=== PATIENT | male | born 1945 | race Caucasian/White ===

== ENCOUNTER 2017-03-27 02:28 | Inpatient (IN) | payer BC, OTHER ==
[~2017-03-27] VITALS: Ht 172.7 cm; Wt 111.9 kg
[2017-03-27] MEDS ORDERED: HYDROCODONE/HOMATROPINE SYRUP 5MG/1.5MG 5ML UDP PO STA (02:58)
[2017-03-27] MEDS ORDERED: SODIUM CHLORIDE 0.9% 1000ML 1,000 ML IV STA (02:58)
[2017-03-27] MEDS ORDERED: ASPI1TAB48 PO (03:10)
[2017-03-27 03:11] LABS: BASO % 0.3 %; BASO ABS # 0.03 K/uL (0-0.2); COMPLETE YES; EOS % 3.7 %; HEMATOCRIT 44.8 % (42-52); IG% 0.1 %; LYMPH % 22.1 %; LYMPH ABS # 1.91 K/uL (1.2-3.4); MEAN CELL VOLUME 86.5 fL (80-100); MEAN CORPUSCULAR HEMOGLOBIN 30.7 pg (25-34); MEAN CORPUSCULAR HGB CONC 35.5 g/dl (32-36); MEAN PLATELET VOLUME 10.1 fL (7.4-10.4); NEUT % 60.8 %; PLATELET COUNT 191 K/uL (130-400); RED BLOOD COUNT 5.18 M/uL (4.7-6.1); WHITE BLOOD COUNT 8.64 K/uL (4.8-10.8)
[2017-03-27] MEDS ORDERED: PRLSR20 PO (03:11)
[2017-03-27] MEDS ORDERED: HYDR25TA4 PO (03:12)
[2017-03-27] MEDS ORDERED: EZET10TA63 PO (03:13)
[2017-03-27] MEDS ORDERED: SOTA80TA PO (03:14)
[2017-03-27] MEDS ORDERED: LEVO25TA5 PO (03:14)
[2017-03-27] MEDS ORDERED: FEXO1TAB49 PO (03:15)
[2017-03-27] MEDS ORDERED: MULT-1093 PO (03:16)
[2017-03-27] MEDS ORDERED: CHOL1000 PO (03:17)
[2017-03-27] MEDS ORDERED: LUTE6TAB PO (03:18)
[2017-03-27] MEDS ORDERED: CIPR0.3S OP (03:22)
[2017-03-27 03:42] LABS: ALT/SGPT 30 U/L (12-78); AST/SGOT 18 U/L (15-37); BLOOD UREA NITROGEN 16 mg/dl (7-18); BUN/CREATININE RATIO 14.9 (10-20); CALCIUM 8.5 mg/dl (8.5-10.1); CARBON DIOXIDE 26 mmol/L (21-32); CHLORIDE 107 mmol/L (98-107); GLUCOSE 160 mg/dl (70-99); POTASSIUM 3.7 mmol/L (3.5-5.1); SODIUM 141 mmol/L (136-145)
[2017-03-27 03:48] LABS: ALKALINE PHOSPHATASE 117 U/L (45-117); CKMB/CK RATIO 2.1 (0-3.0)
--- NOTE | 2017-03-27 04:13 | EMERGENCY ROOM VISIT NOTE ---
History Report prepared by Darci: Pratima Dwyer Under the Supervision of: Dr. Johnny Jules M.D. First contact with patient: 02:47 Chief Complaint: CHEST PAIN Stated Complaint: CHEST PAIN,NUMBNESS,B/P 175/100 AT HOME Nursing Triage Summary: See triage noted History of Present Illness The patient is a 71 year old male who presents to the Emergency Room with complaints of an episode of chest pain starting two hours ago. The patient reports that he fell asleep watching the news on the couch when he woke up with the chest pain. He states that he felt pain in his arm and hand. He notes that his hand felt cold and numb. He states at this point he started coughing. The patient notes a history of atrial fibrillation and that when he has an episode, he coughs. He states that he assumed that it was his atrial fibrillation, but then when it didn't pass, he decided to come to the ED. His notes that she took his blood pressure with their home cough and it was 175/100. The patient notes that he can feel his palpitations when he has his atrial fibrillation, but didn't tonight. He notes that he had a mild pain shooting from his chest pain. The patient notes that he has had a cardiac catheterization done that found two blockages of 50%. He denies any stent placement. The patient also notes that he has been under stress lately since they are approaching the one year anniversary of his son's and his birthday. The patient currently rates his pain as a 2/10 in severity. Source of History: patient Onset: two hours ago Position: chest Symptom Intensity: 2/10 Quality: pressure Timing: other (episode) Associated Symptoms: + cough, + numbness Note: The patient complains of the pain radiating to his arm and hand. Review of Systems See HPI for pertinent positives & negatives. A total of 10 systems reviewed and were otherwise negative. Past Medical & Surgical Medical Problems: (1) Atrial fibrillation (2) Precordial chest pain Surgical Problems: (1) History of cholecystectomy (2) Hx of umbilical hernia repair Family History No pertinent family history Social History Smoking Status: Never Smoker Drug Use: none Marital Status: Housing Status: lives with significant other Current/Historical Medications Scheduled Aspirin (Aspirin Low Dose), 81 MG PO DAILY Cholecalciferol (Vitamin D3), 5,000 TAB PO DAILY Ciprofloxacin Hcl (Ophth) (Ciloxan Oph), 1 DROPS OP DIRECTED Ezetimibe (Zetia), 10 MG PO DAILY Fexofenadine Hcl (Anne Allergy), 1 TAB PO DAILY Hydrochlorothiazide (Hctz), 25 MG PO DAILY Levothyroxine Sodium (Levothyroxine Sodium), 25 MCG PO DAILY Lutein-Zeaxanthin (Lutein W/Zeaxanthin), 1 TAB PO DAILY Multiple Vitamins W/ Minerals (Centrum Silver 50+Men), 1 TAB PO DAILY Omeprazole (Prilosec), 40 MG PO DAILY Sotalol Hcl (Sotalol Hcl), 40 MG PO BID Scheduled PRN Hydrocodone W/ Homatropine (Hycodan 5/1.5MG 5 Ml), 5 ML PO HS PRN for Cough Allergies Coded Allergies: Cefuroxime (Unverified Allergy, Unknown, nausea, 03/27/17) Jody (Unverified Allergy, Unknown, unknown, 03/27/17) Uncoded Allergies: FRANCES PEPPERS (Allergy, Unknown, unknown, 03/27/17) Physical Exam Vital Signs Date Time Temp Pulse Resp B/P (MAP) Pulse Ox O2 Delivery O2 Flow Rate FiO2 03/27/17 06:47 84 03/27/17 06:01 76 20 144/82 96 Room Air 03/27/17 05:13 89 16 146/100 97 Room Air 03/27/17 04:45 84 20 120/78 95 Room Air 03/27/17 04:00 92 16 136/84 96 Room Air 03/27/17 03:02 96 Room Air 03/27/17 03:02 96 Room Air 03/27/17 02:52 105 03/27/17 02:40 96 Room Air 03/27/17 02:34 37.4 118 22 134/112 97 Room Air Physical Exam GENERAL: Patient is a healthy-appearing well-nourished HEAD: Normocephalic atraumatic EYES: Ocular movements intact pupils equal and react to light OROPHARYNX mucous membranes are moist no exudates present no erythema or edema present NECK: Supple no nuchal rigidity CHEST: Good equal expansion. Tender to left side of chest wall. LUNGS: Clear and equal to auscultation CARDIAC: Normal S1 and S2 ABDOMEN: Soft, tender to epigastric region, no guarding BACK: No CVA tenderness EXTREMITIES: No pain upon palpation normal muscle strength in all groups no clubbing cyanosis or edema NEURO: Patient is following commands and answering questions appropriately. Alert and oriented x3 Cranial Nerves 2-12 grossly intact Medical Decision & Procedures ER Provider Diagnostic Interpretation: Radiology results as stated below per my review: CHEST X-RAY 1 VIEW: Findings: I interpreted the x-ray and there is no evidence of pneumonia, congestion, or pneumothorax. Laboratory Results 03/27/17 02:35 Red Blood Count 5.18, Mean Corpuscular Volume 86.5, Mean Corpuscular Hemoglobin 30.7, Mean Corpuscular Hemoglobin Concent 35.5, Mean Platelet Volume 10.1, Neutrophils (%) (Auto) 60.8, Lymphocytes (%) (Auto) 22.1, Monocytes (%) (Auto) 13.0, Eosinophils (%) (Auto) 3.7, Basophils (%) (Auto) 0.3, Neutrophils # (Auto ) 5.25, Lymphocytes # (Auto) 1.91, Monocytes # (Auto) 1.12, Eosinophils # (Auto ) 0.32, Basophils # (Auto) 0.03 03/27/17 02:35 Test 03/27/17 02:35 03/27/17 04:06 White Blood Count 8.64 K/uL (4.8-10.8) Red Blood Count 5.18 M/uL (4.7-6.1) Hemoglobin 15.9 g/dL (14.0-18.0) Hematocrit 44.8 % (42-52) Mean Corpuscular Volume 86.5 fL (80-100) Mean Corpuscular Hemoglobin 30.7 pg (25-34) Mean Corpuscular Hemoglobin Concent 35.5 g/dl (32-36) Platelet Count 191 K/uL (130-400) Mean Platelet Volume 10.1 fL (7.4-10.4) Neutrophils (%) (Auto) 60.8 % Lymphocytes (%) (Auto) 22.1 % Monocytes (%) (Auto) 13.0 % Eosinophils (%) (Auto) 3.7 % Basophils (%) (Auto) 0.3 % Neutrophils # (Auto) 5.25 K/uL (1.4-6.5) Lymphocytes # (Auto) 1.91 K/uL (1.2-3.4) Monocytes # (Auto) 1.12 K/uL (0.11-0.59) Eosinophils # (Auto) 0.32 K/uL (0-0.5) Basophils # (Auto) 0.03 K/uL (0-0.2) RDW Standard Deviation 41.9 fL (36.4-46.3) RDW Coefficient of Variation 13.1 % (11.5-14.5) Immature Granulocyte % (Auto) 0.1 % Immature Granulocyte # (Auto) 0.01 K/uL (0.00-0.02) Anion Gap 8.0 mmol/L (3-11) Est Creatinine Clear Calc Drug Dose 75.8 ml/min Estimated GFR () 78.4 Estimated GFR (Non- 67.7 BUN/Creatinine Ratio 14.9 (10-20) Calcium Level 8.5 mg/dl (8.5-10.1) Total Bilirubin 0.4 mg/dl (0.2-1) Direct Bilirubin < 0.1 mg/dl (0-0.2) Aspartate Amino Transf (AST/SGOT) 18 U/L (15-37) Alanine Aminotransferase (ALT/SGPT) 30 U/L (12-78) Alkaline Phosphatase 117 U/L (45-117) Total Creatine Kinase 63 U/L (39-308) Creatine Kinase MB 1.3 ng/ml (0.5-3.6) Creatine Kinase MB Ratio 2.1 (0-3.0) Troponin I < 0.015 ng/ml (0-0.045) Total Protein 6.9 gm/dl (6.4-8.2) Albumin 3.5 gm/dl (3.4-5.0) Lipase 95 U/L (73-393) Chemistry Specimen Hemolysis Bedside Troponin I < 0.030 ng/ml (0-0.045) Labs reviewed by ED physician. Medications Administered Medications (Trade) Dose Ordered Sig/Chauncey Route Start Time Stop Time Status Last Admin Dose Admin Sodium Chloride 1,000 ml @ 999 mls/hr Q1H1M STAT IV 03/27/17 02:58 03/27/17 03:58 DC 03/27/17 03:09 999 MLS/HR Hydrocodone Bit/ Homatropine Methylb (Hycodan Syrup) 5 ml NOW STAT PO 03/27/17 02:58 03/27/17 03:00 DC 03/27/17 03:08 5 ML ECG Indication: chest pain Rate (beats per minute): 103 Rhythm: sinus tachycardia Findings: RBBB, no acute ischemic change, other (premature atrial complex) Comparison ECG Date: Repeat Change: Repeat ECG: Sinus rhythm at a rate of 88 with premature supraventricular complex , RBBB, no ischemic change. ED Course 0250: Past medical records reviewed. The patient was evaluated in room A2. A complete history and physical examination was performed. 0258: Ordered Hycodan Syrup 5 ml PO, NSS 1000 ml @ 999 mls/hr IV. 0442: I reevaluated the patient and he is resting comfortably. I discussed the results and treatment plan with him. The patient verbalized understanding and agreement. 0458: I discussed the patient's case with Dr. Santacruz, he has agreed to evaluate the patient for further management and care. Medical Decision Medication Reconciliation: I attest that I have personally reviewed the patient' s current medication list Blood Pressure Screening: Patient was found to have an elevated blood pressure and was referred to their primary care doctor for recheck and further treatment Differential diagnosis: Etiologies such as cardiac ischemia, aortic dissection, pulmonary embolism, pneumonia, pneumothorax, musculoskeletal, infections, pericarditis, myocarditis , esophageal rupture, gastrointestinal, as well as others were entertained. This is a 71-year-old male who presents emergency department complaining of cough and chest wall tenderness that started this evening. The patient believes he is in atrial fibrillation however he is in a bigeminy the converts to normal sinus rhythm. He states that he coughs when he is in atrial fibrillation. Serial EKGs were performed of the on the patient in the emergency department and at no tender the patient exhibit ischemia or changes on his EKG. In addition serial troponins were drawn which were also 0. The patient was not comfortable in returning home so I did discuss the case with the hospitalist service who agreed to admit the patient. Consults Time Called: [phone] Consulting Physician: Dr. Santacruz Returned Call: [phone] I discussed the patient's case with Dr. Santacruz, he has agreed to evaluate the patient for further management and care. Impression Primary Impression: Chest wall pain Scribe Attestation The scribe's documentation has been prepared under my direction and personally reviewed by me in its entirety. I confirm that the note above accurately reflects all work, treatment, procedures, and medical decision making performed by me. Departure Information Dispostion Being Evaluated By Hospitalist Prescriptions Hydrocodone W/ Homatropine (HYCODAN 5/1.5MG 5 ML) 1 Syp Syp 5 ML PO HS Y for Cough, #120 ML Prov: Johnny Jules MD 03/27/17 Referrals Tyron Gaytan M.D. (PCP) Patient Instructions My [facility]
[2017-03-27] MEDS ORDERED: HYDR5SYP11 PO (04:43)
[2017-03-27] MEDS ORDERED: ACETAMINOPHEN 325 MG TAB PO PRN (06:00)
[2017-03-27] MEDS ORDERED: NITROGLYCERIN 0.4 MG SL PER TAB CHARGE SL PRN (06:00)
[2017-03-27] MEDS ORDERED: ONDANSETRON INJ 2 MG/ML 2 ML VIAL IV PRN (06:00)
[2017-03-27] MEDS ORDERED: POLYETHYLENE (MIRALAX) 17 GM PACK PO PRN (06:00)
--- NOTE | 2017-03-27 06:01 | History and Physical ---
History & Physical Date & Time of Service: Mar 27, 2017 at 05:58 Chief Complaint: Chest Pain,Numbness,B/P 175/100 At Home Primary Care Physician: Tyron Gaytan M.D. History of Present Illness Source: patient, spouse 71-year-old male with past medical history of hypertension, hypothyroidism, paroxysmal A. fib presented to the ER with complaints of chest pain which started 2 hours prior to arrival. Per patient, he had fallen asleep on the couch and woke up with chest pain/pressure in the middle of his chest. He also complained of pain and numbness in his left arm and has some sort of a pressure like sensation radiating to his jaw. The patient states that he has a history of paroxysmal A. fib which is associated with a cough upon which it usually resolves. He denied any nausea, vomiting, diaphoresis, difficulty breathing. He had a cardiac catheterization about 20 years ago and was found to have blockages in 2 vessels(about 50%) but denied any stent placement at that time. Denies any fevers or chills. He states that he is in a lot of stress due to an approaching anniversary of his son. Denies any weakness, numbness or tingling Past Medical/Surgical History PMH: HTN, paroxysmal A. fib, hypothyroidism PSH: History of cholecystectomy and umbilical hernia repair Family History No pertinent family history Social History Smoking Status: Never Smoker Drug Use: none Marital Status: Multi-Drug Resistant Organisms History of MDRO: No Allergies Coded Allergies: Cefuroxime (Unverified Allergy, Unknown, nausea, 03/27/17) Jody (Unverified Allergy, Unknown, unknown, 03/27/17) Uncoded Allergies: FRANCES PEPPERS (Allergy, Unknown, unknown, 03/27/17) Home Medications Scheduled Aspirin (Aspirin Low Dose), 81 MG PO DAILY Cholecalciferol (Vitamin D3), 5,000 TAB PO DAILY Ciprofloxacin Hcl (Ophth) (Ciloxan Oph), 1 DROPS OP DIRECTED Ezetimibe (Zetia), 10 MG PO DAILY Fexofenadine Hcl (Anne Allergy), 1 TAB PO DAILY Hydrochlorothiazide (Hctz), 25 MG PO DAILY Levothyroxine Sodium (Levothyroxine Sodium), 25 MCG PO DAILY Lutein-Zeaxanthin (Lutein W/Zeaxanthin), 1 TAB PO DAILY Multiple Vitamins W/ Minerals (Centrum Silver 50+Men), 1 TAB PO DAILY Omeprazole (Prilosec), 40 MG PO DAILY Sotalol Hcl (Sotalol Hcl), 40 MG PO BID Scheduled PRN Hydrocodone W/ Homatropine (Hycodan 5/1.5MG 5 Ml), 5 ML PO HS PRN for Cough Review of Systems Constitutional: No fever, No chills Eyes: No worsening of vision ENT: No hearing loss Respiratory: No cough Cardiovascular: + chest pain, + palpitations, No orthopnea Abdomen: No pain, No nausea Musculoskeletal: No joint pain, No muscle pain Genitourinary - Male: No hematuria, No dysuria Neurologic: No memory loss Psychiatric: No depression symptoms Endocrine: No fatigue Hematologic / Lymphatic: No abnormal bleeding/bruising Integumentary: No rash Physical Exam Vital Signs Date Time Temp Pulse Resp B/P (MAP) Pulse Ox O2 Delivery O2 Flow Rate FiO2 03/27/17 05:13 89 16 146/100 97 Room Air 03/27/17 04:45 84 20 120/78 95 Room Air 03/27/17 04:00 92 16 136/84 96 Room Air 03/27/17 03:02 96 Room Air 03/27/17 03:02 96 Room Air 03/27/17 02:52 105 03/27/17 02:40 96 Room Air 03/27/17 02:34 37.4 118 22 134/112 97 Room Air General Appearance: WD/WN, no apparent distress Head: normocephalic Eyes: normal inspection ENT: normal ENT inspection, hearing grossly normal Neck: supple Respiratory/Chest: chest non-tender, lungs clear, normal breath sounds, no respiratory distress, no accessory muscle use Cardiovascular: + irregularly irregular Abdomen/GI: normal bowel sounds, non tender, soft Extremities/Musculoskelatal: no pedal edema, normal range of motion Neurologic/Psych: alert, normal mood/affect, oriented x 3 Skin: normal color Diagnostics Laboratory Results Results Past 24 Hours Test 03/27/17 02:35 03/27/17 04:06 03/27/17 05:54 Range/Units White Blood Count 8.64 4.8-10.8 K/uL Red Blood Count 5.18 4.7-6.1 M/uL Hemoglobin 15.9 14.0-18.0 g/dL Hematocrit 44.8 42-52 % Mean Corpuscular Volume 86.5 80-100 fL Mean Corpuscular Hemoglobin 30.7 25-34 pg Mean Corpuscular Hemoglobin Concent 35.5 32-36 g/dl Platelet Count 191 130-400 K/uL Mean Platelet Volume 10.1 7.4-10.4 fL Neutrophils (%) (Auto) 60.8 % Lymphocytes (%) (Auto) 22.1 % Monocytes (%) (Auto) 13.0 % Eosinophils (%) (Auto) 3.7 % Basophils (%) (Auto) 0.3 % Neutrophils # (Auto) 5.25 1.4-6.5 K/uL Lymphocytes # (Auto) 1.91 1.2-3.4 K/uL Monocytes # (Auto) 1.12 0.11-0.59 K/uL Eosinophils # (Auto) 0.32 0-0.5 K/uL Basophils # (Auto) 0.03 0-0.2 K/uL RDW Standard Deviation 41.9 36.4-46.3 fL RDW Coefficient of Variation 13.1 11.5-14.5 % Immature Granulocyte % (Auto) 0.1 % Immature Granulocyte # (Auto) 0.01 0.00-0.02 K/uL Sodium Level 141 136-145 mmol/L Potassium Level 3.7 3.5-5.1 mmol/L Chloride Level 107 98-107 mmol/L Carbon Dioxide Level 26 21-32 mmol/L Anion Gap 8.0 3-11 mmol/L Blood Urea Nitrogen 16 7-18 mg/dl Creatinine 1.10 0.60-1.40 mg/dl Est Creatinine Clear Calc Drug Dose 75.8 ml/min Estimated GFR () 78.4 Estimated GFR (Non- 67.7 BUN/Creatinine Ratio 14.9 10-20 Random Glucose 160 70-99 mg/dl Calcium Level 8.5 8.5-10.1 mg/dl Total Bilirubin 0.4 0.2-1 mg/dl Direct Bilirubin < 0.1 0-0.2 mg/dl Aspartate Amino Transf (AST/SGOT) 18 15-37 U/L Alanine Aminotransferase (ALT/SGPT) 30 12-78 U/L Alkaline Phosphatase 117 45-117 U/L Total Creatine Kinase 63 39-308 U/L Creatine Kinase MB 1.3 0.5-3.6 ng/ml Creatine Kinase MB Ratio 2.1 0-3.0 Troponin I < 0.015 0-0.045 ng/ml Total Protein 6.9 6.4-8.2 gm/dl Albumin 3.5 3.4-5.0 gm/dl Lipase 95 73-393 U/L Chemistry Specimen Hemolysis Bedside Troponin I < 0.030 0-0.045 ng/ml Impression Assessment and Plan 71-year-old male with past medical history of hypertension, hypothyroidism, paroxysmal A. fib presented to the ER with complaints of chest pain which started 2 hours prior to arrival. He also has a history of a paroxysmal A. fib which is associated with coughing which usually resolves it. Complains of chest discomfort with ongoing cough. Precordial chest pain: - Chest x-ray unremarkable - EKG: Sinus tachycardia, 103 - Repeat ECG: Sinus rhythm at a rate of 88 with premature supraventricular complex, RBBB, no ischemic change. - Initial troponin negative, troponins trended every 8 hours - Continue aspirin, sotalol, Zetia - Cardiology consult Paroxysmal atrial fibrillation: - Electrolytes within normal limits - TSH pending - [id number]- vasc at 2, stroke risk 2.2% per year - Patient stated that his cardiology recommended him to take 25 g of Synthroid every other day to help with paroxysmal A. fib Hypertension: - Continue hydrochlorothiazide DVT prophylaxis: - SCDs - Heparin subcutaneous Disposition: Admitted to telemetry Resident Physician Supervision Note: I was present with Dr. Pierre during the history and exam. I discussed the case with the resident and agree with the findings and plan as documented in the note. Any exceptions or clarifications are listed here: 71 y/o M Hx paroxysmal AF, HTN, HPL, hypothyroid - presenting with CP accompanied by arm numbness. Apso describes a persistent cough an states that when he coughs his symptoms can improve. OE AAO x 3 S1,2 IRR CTAB NT, ND, BS+ No CCE P: On monitor pt is in/out of AF - he takes Sotalol so that maybe this needs to be reconsidered and he should be switched to a typical Bblocker or Cardizem It may be that he is having runs of rapid fib leading to his symptoms and that he sends himself back into a sinus rhythm when he coughs Considering his age and risk, he would qualify for anticoagulation We should likely contact his marketing operations assistant if he rules out for OK to review DC medications and insure timely follow-up Above discussed with pt and resident. Documented By: Vahe Santacruz Level of Care Telemetry VTE Prophylaxis VTE Risk Assessment Done? Y/N: Yes Risk Level: Moderate Given or contraindicated: Unfractionated heparin SQ, SCD's Resident Tracking Resident Involvement: Resident Care Provided Care Provided: Adult Hospital Medicine
--- NOTE | 2017-03-27 06:52 | DIAGNOSTIC IMAGING REPORT ---
CHEST ONE VIEW PORTABLE HISTORY:71 yearsMaleCHEST PAIN COMPARISON: Radiographs of the right shoulder 08/01/2016. TECHNIQUE: Portable upright AP view of the chest. FINDINGS: Cardiac silhouette is mildly enlarged. The lungs are mildly hypoinflated without pneumothorax, pleural effusion or focal airspace consolidation. There is no overt pulmonary edema. Multilevel endplate spurring is seen throughout the spine. The bones are grossly intact. IMPRESSION: Mild hypoinflation without acute cardiopulmonary process. The above report was generated using voice recognition software. It may contain grammatical, syntax or spelling errors. Electronically signed by: Corey Fry 03/27/2017 6:51 AM Dictated Date/Time: 03/27/2017 6:50 AM
[2017-03-27 06:55] VITALS: O2SAT 96; Ht 172.7 cm; Wt 111.9 kg
[2017-03-27 07:35] VITALS: O2SAT 96
[2017-03-27 07:57] VITALS: BP 147/98; PULSE 73; TEMP 36.4; O2SAT 97
[2017-03-27] MEDS ORDERED: NURSING VERBAL MED ORDER ONE (09:00)
[2017-03-27] MEDS ORDERED: SOTALOL HCL 80 MG TAB PO SCH ×2 (09:30→21:00)
[2017-03-27] MEDS ORDERED: EZETIMIBE 10MG TAB PO SCH (09:30)
[2017-03-27] MEDS ORDERED: HYDROCHLOROTHIAZIDE 25 MG TAB PO SCH (09:30)
[2017-03-27] MEDS ORDERED: PANTOprazole SOD 40 MG TAB PO SCH (09:30)
[2017-03-27] MEDS ORDERED: FEXOFENADINE HCL 180 MG TAB PO SCH (09:30)
[2017-03-27] MEDS ORDERED: ASPIRIN 81 MG ECTAB PO SCH (09:30)
[2017-03-27] MEDS ORDERED: CEROVITE ADV FORMULA TAB PO SCH (09:30)
--- NOTE | 2017-03-27 10:54 | Cardiology Consultation ---
Cardiology Consultation Date of Consultation: Mar 27, 2017. Reason for Consultation: Chest pain Pt evaluation today including: conversation w/ patient, physical exam, chart review, lab review, review of inpatient medication list History of Present Illness ADDENDUM BY ATTENDING WORK AND FAMILY LIFE CONSULTANT: PLEASE SEE MY NOTE UNDER SEPARATE COVER. BELOW IS RESIDENT NOTE. Mr. Pritchard is a pleasant 71 year old gentleman who was admitted from the emergency department around 2AM last night for a 3 hour history of constant chest pain, on a background of HTN, hypercholesterolemia, paroxysmal atrial fibrillation, CAD and hypothyroidism. His chest pain was described as dull pressure, 4/10 in severity, was substernal, radiating to the left side of his jaw. He also experienced numbness of his left arm, He thought it was another episode of atrial fibrillation, and usually after he coughs a few time, his afib abates. This time, he did not experience relief upon coughing. He denies shortness of breath, diaphoresis, nausea or vomiting. He has never had an episode of chest pain before. His measured his blood pressure during this time and it was elevated at 175/114. Relevant negatives include no recent illnesses, no syncopal episodes and no calf swelling or tenderness. Upon presentation to the emergency department, the pain went away after approximately 3 hours from the onset. He did not take any nitroglycerin or medications for his pain. Apart from this episode of chest pain, Mr. Pritchard is generally healthy. He is active and reports no limitations in his ADLs due to chest pain or shortness of breath. He, however, is under a lot of stress as the date of his son's anniversary is approaching. He has recently come into bad news as he also recently found out about a family member's diagnosis of esophageal cancer, and is upset about his mother's diagnosis of Alzheimer's. He lives at home with his and his aunt. With regards to his cardiac history, he has had paroxysmal atrial fibrillation for 50 years, and says he has about 2 episodes a year, generally lasting a few seconds, and returning to sinus rhythm after he coughs. He has had a previous heart cath in [place], sometimes in the 90s (unsure of exact year), where the doctor discovered 2 blockages, both less than 50% and therefore not requiring any intervention. His last stress test was a nuclear stress test done a year ago , and was negative. He follows up with his speech/language therapist Dr. Mayer regularly. Past Medical/Surgical History PMH: - HTN (diagnosed approx 10 years ago) - hypercholesterolemia - Paroxysmal atrial fibrillation (diagnosed approx 50 years ago - occurs approx twice a year and lasts for a few seconds) - hypothyroidism - arthritis in L knee and R ankle PSH - cholecystectomy (2013) - umbilical hernia repair Family History Father - [place] at age 36, and then 47 at which time he passed Mother - Alzheimer's Social History Smoking Status: Former Smoker (Light smoker for 2 years. No longer smokes) History of Alcohol Use: Yes (beer, whiskey, socially 1 to 2 times a week) Review of Systems Constitutional: No fever, No chills, No sweats, No weakness Respiratory: No shortness of breath, No dyspnea on exertion, No dyspnea at rest Cardiac: + chest pain, No orthopnea, No PND, No edema, No claudication Abdomen: No pain, No nausea, No vomiting, No diarrhea, No constipation All Other Systems: Reviewed and Negative Allergies Coded Allergies: Cefuroxime (Unverified Allergy, Unknown, nausea, 03/27/17) Jody (Unverified Allergy, Unknown, unknown, 03/27/17) Uncoded Allergies: FRANCES PEPPERS (Allergy, Unknown, unknown, 03/27/17) Medications Current Inpatient Medications Medications (Trade) Dose Ordered Sig/Chauncey Route Start Time Stop Time Status Last Admin Dose Admin Acetaminophen (Tylenol Tab) 650 mg Q4H PRN PO 03/27/17 06:00 04/26/17 05:59 Ondansetron HCl (Zofran Inj) 4 mg Q6H PRN IV 03/27/17 06:00 04/26/17 05:59 Nitroglycerin (Nitrostat Tab) 0.4 mg UD PRN SL 03/27/17 06:00 04/26/17 05:59 Polyethylene (Miralax Powder Packet) 17 gm DAILY PRN PO 03/27/17 06:00 04/26/17 05:59 Aspirin (Ecotrin Tab) 81 mg DAILY PO 03/28/17 09:00 04/27/17 08:59 EZETIMIBE (Zetia Tab) 10 mg DAILY PO 03/28/17 09:00 04/27/17 08:59 Fexofenadine HCl (Anne Tab) 180 mg DAILY PO 03/28/17 09:00 04/27/17 08:59 Hydrochlorothiazide (Hydrochlorothiazide Tab) 25 mg DAILY PO 03/28/17 09:00 04/27/17 08:59 Levothyroxine Sodium (Synthroid Tab) 25 mcg DAILYBB PO 03/28/17 06:30 04/27/17 06:29 Multivitamins/ Minerals (Multivitamin W/ Minerals Tab) 1 tab DAILY PO 03/28/17 09:00 04/27/17 08:59 Sotalol HCl (Betapace Tab) 40 mg BID PO 03/27/17 21:00 04/26/17 20:59 Pantoprazole Sodium (Protonix Tab) 40 mg DAILY PO 03/28/17 09:00 04/27/17 08:59 Levothyroxine Sodium (Synthroid Tab) 25 mcg TODAY@1100 PO 03/27/17 11:00 03/27/17 11:01 Physical Exam Vital Signs Past 12 Hours Date Time Temp Pulse Resp B/P (MAP) Pulse Ox O2 Delivery O2 Flow Rate FiO2 03/27/17 08:00 Room Air 03/27/17 07:57 36.4 73 18 147/98 (114) 97 Room Air 03/27/17 07:37 03/27/17 07:35 80 19 139/81 96 Room Air 03/27/17 06:55 96 Room Air 03/27/17 06:47 84 03/27/17 06:01 76 20 144/82 96 Room Air 03/27/17 05:13 89 16 146/100 97 Room Air 03/27/17 04:45 84 20 120/78 95 Room Air 03/27/17 04:00 92 16 136/84 96 Room Air 03/27/17 03:02 96 Room Air 03/27/17 03:02 96 Room Air 03/27/17 02:52 105 03/27/17 02:40 96 Room Air 03/27/17 02:34 37.4 118 22 134/112 97 Room Air Head: normocephalic, atraumatic Neck: supple, no masses Lungs: Respiratory effort: no dyspnea, good air movement Auscultation: breath sounds normal, no wheezing, no rales/crackles, no rhonchi Cardiovascular: Apical Impulse: not displaced Heart Auscultation: RRR, normal S1, normal S2, no murmurs, no rubs, no gallops Peripheral Pulses: Radial Pulse: normal on the right Abdomen: Bowel Sounds: normal Inspection & Palpation: soft, non-distended, no tenderness, guarding & rebound, no masses Liver: non-tender, no hepatomegaly Extremities: no cyanosis, no edema, no varicosities Data Laboratory Results: Last 24 Hours Test 03/27/17 02:35 03/27/17 04:06 White Blood Count 8.64 K/uL Red Blood Count 5.18 M/uL Hemoglobin 15.9 g/dL Hematocrit 44.8 % Mean Corpuscular Volume 86.5 fL Mean Corpuscular Hemoglobin 30.7 pg Mean Corpuscular Hemoglobin Concent 35.5 g/dl Platelet Count 191 K/uL Mean Platelet Volume 10.1 fL Neutrophils (%) (Auto) 60.8 % Lymphocytes (%) (Auto) 22.1 % Monocytes (%) (Auto) 13.0 % Eosinophils (%) (Auto) 3.7 % Basophils (%) (Auto) 0.3 % Neutrophils # (Auto) 5.25 K/uL Lymphocytes # (Auto) 1.91 K/uL Monocytes # (Auto) 1.12 K/uL Eosinophils # (Auto) 0.32 K/uL Basophils # (Auto) 0.03 K/uL RDW Standard Deviation 41.9 fL RDW Coefficient of Variation 13.1 % Immature Granulocyte % (Auto) 0.1 % Immature Granulocyte # (Auto) 0.01 K/uL Sodium Level 141 mmol/L Potassium Level 3.7 mmol/L Chloride Level 107 mmol/L Carbon Dioxide Level 26 mmol/L Anion Gap 8.0 mmol/L Blood Urea Nitrogen 16 mg/dl Creatinine 1.10 mg/dl Est Creatinine Clear Calc Drug Dose 75.8 ml/min Estimated GFR () 78.4 Estimated GFR (Non- 67.7 BUN/Creatinine Ratio 14.9 Random Glucose 160 mg/dl Calcium Level 8.5 mg/dl Total Bilirubin 0.4 mg/dl Direct Bilirubin < 0.1 mg/dl Aspartate Amino Transf (AST/SGOT) 18 U/L Alanine Aminotransferase (ALT/SGPT) 30 U/L Alkaline Phosphatase 117 U/L Total Creatine Kinase 63 U/L Creatine Kinase MB 1.3 ng/ml Creatine Kinase MB Ratio 2.1 Troponin I < 0.015 ng/ml Total Protein 6.9 gm/dl Albumin 3.5 gm/dl Lipase 95 U/L Thyroid Stimulating Hormone (TSH) 3.340 uIu/ml Chemistry Specimen Hemolysis Bedside Troponin I < 0.030 ng/ml Imaging: EKG: Telemetry reviewed: Assessment & Plan Chest Pain His initial EKG showed sinus tachycardia with a RBBB and PAC. There were no ST segment changes or Q waves. His initial troponin was 0.015 and his POC troponin 2 hours later was 0.03. CXR was negative. Repeat troponins scheduled at 11:54 and 19:54 ECHO requested. If troponin negative, treadmill stress test. If he is not able to tolerate this due to his arthritis, dobutamine stress echo Continue aspirin, sotalol, ezetimibe Paroxsymal Atrial Fibrillation Telemetry reviewed, no episodes of atrial fibrillation since admission He is in sinus rhythm at approx 86 bpm with PAC TSH normal His chadsvasc score is 2, and per guidelines should be anticoagulated, however details of his atrial fibrillation are not well known, and his speech/language therapist has elected not to place him on an anticoagulant Hypercholesterolemia With his cardiac history, he should be placed on a high intensity statin. He, however, stated that he was on a statin in the past and this elevated his liver enzymes. Continue Ezetimibe. Hypertension Continue hydrochlorothiazide Resident Tracking Resident Involvement: Resident Care Provided Care Provided: Adult Hospital Medicine
[2017-03-27] MEDS ORDERED: LEVOTHYROXINE 25 MCG TAB PO SCH (11:00)
[2017-03-27 12:13] VITALS: BP 147/95; PULSE 76; TEMP 36.7; O2SAT 96
--- NOTE | 2017-03-27 13:47 | Cardiology Consultation ---
Cardiology Consultation Date of Consultation: Mar 27, 2017. Requesting Physician: Dr. Lawler Attending Physician: Dr. Chavez Reason for Consultation: chest pain Pt evaluation today including: conversation w/ patient, physical exam, chart review, lab review, review of studies, review of inpatient medication list, conversation w/ attending (Spoke with Dr. Walker (primary service)) History of Present Illness Mr. Pritchard is a very pleasant 71-year-old gentleman with a history significant for nonobstructive CAD, paroxysmal atrial fibrillation on sotalol, hypertension , and dyslipidemia. He was admitted to [facility] on 2016 with chest pain. Last night while laying in bed at approximately 2300 he woke up with chest pain. He described the chest pain as a dull pressure that radiated to the jaw and left arm. The chest pain was in the lower portion of the chest, just above the epigastric area. There is no associated shortness of breath, diaphoresis, nausea, vomiting, or other associated symptoms cath. The pain spontaneously resolved in approximately 3 hours but was constant throughout that time. It was not positional and chest pain was not pleuritic in nature. He is currently chest pain-free. His chronic but stable dyspnea with exertion while climbing 2 flights of stairs or climbing a hill. He denies shortness of breath at rest, syncope, near- syncope, edema, melena, hematochezia, hematuria, or other bleeding. He does have palpitations occasionally. He states that he can feel atrial fibrillation and the episodes typically occur twice per year lasting only a few seconds and typically resolves with coughing. He states that he had a cardiac catheterization sometime in the at [facility]. He states that he had nonobstructive CAD with blockages less than 50%. He had a stress test approximately 1 year ago which she reports is normal. He had been on a statin therapy in the past but states that he had elevated liver labs, presumably transaminase levels, on statin therapy and that they have resolved with discontinuation of statin. He has been under a lot of stress recently. His son less than 1 year ago, in April of 2016. His son's birthday is on 03/30/2017 he admits that he and his have been trying to cope with this upcoming anniversary. Also, his daughter, who resides in [place] with her , recently announced that her has stage IV esophageal cancer. Review of systems: As above. He also admits to right knee pain and left ankle pain. Review of systems otherwise negative/unremarkable. Past Medical/Surgical History 1. Hypertension 2. Paroxysmal atrial fibrillation on sotalol 3. Hypothyroidism 4. Status post cholecystectomy 5. Status post hernia repair 6. Dyslipidemia Family History No pertinent family history Father with CAD diagnosed at the age of 36. Mother with Alzheimer's disease. Social History Smoking Status: Former Smoker (Light smoker for 2 years. No longer smokes) History of Alcohol Use: Yes (beer, whiskey, socially 1 to 2 times a week) Occasional alcohol. No smoking. No drugs. lives at home with his . His 99-year-old aunt also lives at home with them. His son in April of 2016. Daughter lives in [place]. No grand children. He is retired. He was unaccompanied in his hospital room. Review of Systems Respiratory: No shortness of breath, No dyspnea on exertion, No dyspnea at rest Cardiac: + chest pain, No orthopnea, No PND, No edema, No claudication Allergies Coded Allergies: Cefuroxime (Unverified Allergy, Unknown, nausea, 03/27/17) Jody (Unverified Allergy, Unknown, unknown, 03/27/17) Uncoded Allergies: FRANCES PEPPERS (Allergy, Unknown, unknown, 03/27/17) Medications Current Inpatient Medications Medications (Trade) Dose Ordered Sig/Chauncey Route Start Time Stop Time Status Last Admin Dose Admin Acetaminophen (Tylenol Tab) 650 mg Q4H PRN PO 03/27/17 06:00 04/26/17 05:59 Ondansetron HCl (Zofran Inj) 4 mg Q6H PRN IV 03/27/17 06:00 04/26/17 05:59 Nitroglycerin (Nitrostat Tab) 0.4 mg UD PRN SL 03/27/17 06:00 04/26/17 05:59 Polyethylene (Miralax Powder Packet) 17 gm DAILY PRN PO 03/27/17 06:00 04/26/17 05:59 Aspirin (Ecotrin Tab) 81 mg DAILY PO 03/28/17 09:00 04/27/17 08:59 EZETIMIBE (Zetia Tab) 10 mg DAILY PO 03/28/17 09:00 8/10/17 08:59 Fexofenadine HCl (Anne Tab) 180 mg DAILY PO 03/28/17 09:00 04/27/17 08:59 Hydrochlorothiazide (Hydrochlorothiazide Tab) 25 mg DAILY PO 03/28/17 09:00 04/27/17 08:59 Levothyroxine Sodium (Synthroid Tab) 25 mcg DAILYBB PO 03/28/17 06:30 04/27/17 06:29 Multivitamins/ Minerals (Multivitamin W/ Minerals Tab) 1 tab DAILY PO 03/28/17 09:00 04/27/17 08:59 Sotalol HCl (Betapace Tab) 40 mg BID PO 03/27/17 21:00 04/26/17 20:59 Pantoprazole Sodium (Protonix Tab) 40 mg DAILY PO 03/28/17 09:00 04/27/17 08:59 Physical Exam Vital Signs Past 12 Hours Date Time Temp Pulse Resp B/P (MAP) Pulse Ox O2 Delivery O2 Flow Rate FiO2 03/27/17 12:13 36.7 76 16 147/95 (112) 96 03/27/17 08:00 Room Air 03/27/17 07:57 36.4 73 18 147/98 (114) 97 Room Air 03/27/17 07:37 03/27/17 07:35 80 19 139/81 96 Room Air 03/27/17 06:55 96 Room Air 03/27/17 06:47 84 03/27/17 06:01 76 20 144/82 96 Room Air 03/27/17 05:13 89 16 146/100 97 Room Air 03/27/17 04:45 84 20 120/78 95 Room Air 03/27/17 04:00 92 16 136/84 96 Room Air 03/27/17 03:02 96 Room Air 03/27/17 03:02 96 Room Air 03/27/17 02:52 105 03/27/17 02:40 96 Room Air 03/27/17 02:34 37.4 118 22 134/112 97 Room Air Gen.: No acute distress. Alert and oriented. HEENT: Anicteric sclera. Neck: Thick neck. No appreciable JVD. No bruits. Normal carotid upstrokes bilaterally. Cardiac: PMI was nonpalpable. No ventricular heave. Regular rate and rhythm. Normal S1-S2. No murmurs, rubs, or gallops. Pulmonary: Clear to auscultation bilaterally without wheezes, rales, or rhonchi. Abdomen: Soft, nontender, nondistended, with normoactive bowel sounds. No bruits noted. Extremities: 2+ radial pulses bilaterally. 2+ posterior tibialis pulses bilaterally. Trace bilateral pedal edema. No cyanosis. Psychiatric: Affect appears appropriate. Data Laboratory Results: Last 24 Hours Test 03/27/17 02:35 03/27/17 04:06 03/27/17 11:57 White Blood Count 8.64 K/uL Red Blood Count 5.18 M/uL Hemoglobin 15.9 g/dL Hematocrit 44.8 % Mean Corpuscular Volume 86.5 fL Mean Corpuscular Hemoglobin 30.7 pg Mean Corpuscular Hemoglobin Concent 35.5 g/dl Platelet Count 191 K/uL Mean Platelet Volume 10.1 fL Neutrophils (%) (Auto) 60.8 % Lymphocytes (%) (Auto) 22.1 % Monocytes (%) (Auto) 13.0 % Eosinophils (%) (Auto) 3.7 % Basophils (%) (Auto) 0.3 % Neutrophils # (Auto) 5.25 K/uL Lymphocytes # (Auto) 1.91 K/uL Monocytes # (Auto) 1.12 K/uL Eosinophils # (Auto) 0.32 K/uL Basophils # (Auto) 0.03 K/uL RDW Standard Deviation 41.9 fL RDW Coefficient of Variation 13.1 % Immature Granulocyte % (Auto) 0.1 % Immature Granulocyte # (Auto) 0.01 K/uL Sodium Level 141 mmol/L Potassium Level 3.7 mmol/L Chloride Level 107 mmol/L Carbon Dioxide Level 26 mmol/L Anion Gap 8.0 mmol/L Blood Urea Nitrogen 16 mg/dl Creatinine 1.10 mg/dl Est Creatinine Clear Calc Drug Dose 75.8 ml/min Estimated GFR () 78.4 Estimated GFR (Non- 67.7 BUN/Creatinine Ratio 14.9 Random Glucose 160 mg/dl Calcium Level 8.5 mg/dl Total Bilirubin 0.4 mg/dl Direct Bilirubin < 0.1 mg/dl Aspartate Amino Transf (AST/SGOT) 18 U/L Alanine Aminotransferase (ALT/SGPT) 30 U/L Alkaline Phosphatase 117 U/L Total Creatine Kinase 63 U/L Creatine Kinase MB 1.3 ng/ml Creatine Kinase MB Ratio 2.1 Troponin I < 0.015 ng/ml < 0.015 ng/ml Total Protein 6.9 gm/dl Albumin 3.5 gm/dl Lipase 95 U/L Thyroid Stimulating Hormone (TSH) 3.340 uIu/ml Chemistry Specimen Hemolysis Bedside Troponin I < 0.030 ng/ml ECG personally reviewed. ECG 03/27/2017 at 2:33 AM: Sinus tachycardia with PACs at 103 bpm. RBBB. ECG 03/27/2017 at 4:03 a.m.: Sinus rhythm with PACs at 88 bpm. RBBB. Chest x-ray 03/27/2017: Chest x-ray image personally reviewed. No obvious infiltrate. Radiology has interpreted as mild hypo inflation without acute cardiopulmonary process. Echocardiogram images personally reviewed. Echo 03/27/2017: Normal LV size and systolic function. EF 60-65%. Normal wall motion. Type 2 diastolic dysfunction. No significant valvular abnormalities. Telemetry personally reviewed: Sinus rhythm with PACs. No arrhythmia noted. Assessment & Plan ASSESSMENT/PLAN: 1. Chest pain: Atypical chest pain given the fact that symptoms were approximately 3 hours before spontaneously resolving. Cardiac enzymes were unremarkable when he was evaluated earlier today and we were awaiting another resolved. His troponin was also negative, which speaks against ischemic heart disease as the cause of his symptoms. Stress echo recommended and ordered. 2. Hypertension: Blood pressure mildly elevated at times. Can titrate medications as appropriate. 3. Atrial fibrillation: He describes paroxysmal atrial fibrillation. Details of this diagnosis are not well known to us at this time. He is followed by Dr. Mayer, his primary haircutter. He is on low-dose sotalol. He has rare symptoms, approximately twice per year, for only a few seconds. Anticoagulation therapy has been discussed between he and his haircutter and the decision was made to avoid anticoagulation. He should follow with his primary haircutter. Will leave the decision of anticoagulation to his primary haircutter. He is currently in sinus rhythm. 4. CAD: He describes nonobstructive CAD during a coronary angiography in the . Continue aspirin 81 mg daily. High-intensity statin therapy is indicated, however he did not tolerate statin therapy due to elevated transaminase levels according to his report. Optimize blood pressure control, which can be done as an outpatient. No definite angina. 5. Disposition: Plan of care has been discussed with primary service, Dr. Walker. Addendum: Exercise stress echo was completed. Exercise was terminated due to knee pain, but he achieved target heart rate and had negative stress echo images. No chest pain. No further inpatient cardiology evaluation recommended at this time. He can follow up with his primary haircutter. Thank you for allow me to participate in the care of Mr. Pritchard.
[2017-03-27] MEDS ORDERED: PERFLUTREN LIPID MICROSPHERE (DEFINITY) IV ONE (13:51)
[2017-03-27] MEDS ORDERED: HEPARIN SOD 5000 UNIT/0.5 ML CARP SQ SCH (14:00)
--- NOTE | 2017-03-27 14:06 | Discharge Summary ---
Discharge Summary Date of Service Mar 27, 2017. (Caren Walker MD) Discharge Summary Admission Date: Mar 27, 2017 at 05:57 Discharge Date: Mar 27, 2017 Discharge Disposition: Home Principal Diagnosis: Chest pain (Caren Walker MD) Medication Reconciliation Continued Medications: Aspirin (Aspirin Low Dose) 81 Mg Tab 81 MG PO DAILY Cholecalciferol (Vitamin D3) 1,000 Unit Tab 5000 TAB PO DAILY for 90 Days, TAB 3 Refills Ciprofloxacin Hcl (Ophth) (Ciloxan Oph) 0.3 % Amrita 1 DROPS OP DIRECTED, #5 ML Ezetimibe (Zetia) 10 Mg Tab 10 MG PO DAILY, TAB Fexofenadine Hcl (Anne Allergy) 180 Mg Tab 1 TAB PO DAILY for 14 Days, #14 TAB 2 Refills Hydrochlorothiazide (Hctz) 25 Mg Tab 25 MG PO DAILY, TAB Hydrocodone W/ Homatropine (Hycodan 5/1.5MG 5 Ml) 1 Syp Syp 5 ML PO HS PRN for Cough, #120 ML Levothyroxine Sodium (Levothyroxine Sodium) 25 Mcg Tab 25 MCG PO DAILY for 90 Days, #90 TAB 3 Refills Lutein-Zeaxanthin (Lutein W/Zeaxanthin) 1 Tab Tab 1 TAB PO DAILY Multiple Vitamins W/ Minerals (Centrum Silver 50+Men) 1 Tab Tab 1 TAB PO DAILY Omeprazole (Prilosec) 20 Mg Capcr 40 MG PO DAILY, CAP Sotalol Hcl (Sotalol Hcl) 80 Mg Tab 40 MG PO BID for 90 Days, #90 TAB 3 Refills Discharge Exam Review of Systems: Constitutional: No fever, No chills, No sweats, No weight loss, No weakness Eyes: No worsening of vision ENT: No hearing loss Respiratory: No cough, No sputum, No wheezing Cardiovascular: No chest pain, No orthopnea Abdomen: No pain, No nausea, No vomiting Musculoskeletal: No joint pain Genitourinary - Male: No hematuria, No dysuria, No urinary frequency, No urinary urgency Neurologic: No memory loss, No paralysis, No weakness Psychiatric: No depression symptoms Endocrine: No fatigue Hematologic / Lymphatic: No abnormal bleeding/bruising Integumentary: No rash Physical Exam: General Appearance: WD/WN, no apparent distress Eyes: normal inspection, PERRL ENT: hearing grossly normal Neck: supple, no JVD Respiratory/Chest: lungs clear, normal breath sounds, no respiratory distress Cardiovascular: regular rate, rhythm, no murmur, normal peripheral pulses Abdomen / GI: normal bowel sounds, non tender, soft Extremities: no calf tenderness, no pedal edema Neurologic/Psychiatric: alert, normal mood/affect, normal reflexes Skin: no rash (Caren Walker MD) Hospital Course HPI (per admitting provider Dr Lawler): 71-year-old male with past medical history of hypertension, hypothyroidism, paroxysmal A. fib presented to the ER with complaints of chest pain which started 2 hours prior to arrival. Per patient, he had fallen asleep on the couch and woke up with chest pain/pressure in the middle of his chest. He also complained of pain and numbness in his left arm and has some sort of a pressure like sensation radiating to his jaw. The patient states that he has a history of paroxysmal A. fib which is associated with a cough upon which it usually resolves. He had a cardiac catheterization about 20 years ago and was found to have blockages in 2 vessels(about 50%) but denied any stent placement at that time. He states that he is in a lot of stress due to an approaching anniversary of his son. Denies any weakness, numbness or tingling HOSPITAL COURSE: He was monitored on telemetry overnight, and no arrythmias were noted. He was in sinus rhythm throughout his admission. He had negative cardiac enzymes, and had a stress test (final report pending but was discussed w/Cardiology) which was negative for ischemia as well. His pain did not recur during his hospital stay. Precordial chest pain: - Chest x-ray unremarkable - EKG: Sinus tachycardia, 103 - Repeat ECG: Sinus rhythm at a rate of 88 with premature supraventricular complex, RBBB, no ischemic change. - Initial troponin negative, troponins trended every 8 hours - Continued aspirin, sotalol, Zetia - Reviewed by Cardiology during admission Paroxysmal atrial fibrillation: - Electrolytes within normal limits - TSH pending - [id number]- vasc at 2, stroke risk 2.2% per year - Patient stated that his cardiology recommended him to take 25 g of Synthroid every other day to help with paroxysmal A. fib Hypertension: - Continue hydrochlorothiazide DVT prophylaxis: - SCDs - Heparin subcutaneous Disposition: Discharged home in good condition on 03/27/17. Total Time Spent: Greater than 30 minutes This includes examination of the patient, discharge planning, medication reconciliation, and communication with other providers. (Caren Walker MD) Resident Physician Supervision Note: I interviewed and examined the patient. Discussed with Dr. Walker and agree with findings and plan as documented in the note. Any exceptions or clarifications are listed here: None Documented By: Cleveland Chavez feeling better thinks CP was stress related. stress test negative. all other ROS otherwise negative except for as above vitals noted nad breathing unlabored no pallor or icterus chest pain - stress related most likely. no CA, stress test negative. stable for home. 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 (Caren Walker MD) Follow-Up With Dr Mayer within a week, and with PCP within a week. (Caren Walker MD) Additional Copies To David Mayer M.D.; Tyron Gaytan M.D. Resident Tracking Resident Involvement: Resident Care Provided Care Provided: Adult Hospital Medicine (Caren Walker MD)
--- NOTE | 2017-03-27 14:06 | Discharge Instructions ---
Discharge Instructions Date of Service Mar 27, 2017. Admission Reason for Admission: Precordial Chest Pain Discharge Discharge Diagnosis / Problem: Chest pain Discharge Goals Goal(s): Improve disease control Activity Recommendations Activity Limitations: resume your previous activity . Instructions / Follow-Up Instructions / Follow-Up Follow up with Dr Ricardo (Cardiology) within a week. If you notice any further chest pain, shortness of breath, fevers, or inability to walk or perform other usual activities, please seek medical attention. You had a stress test today which was normal, which is reassuring! Continue your current medication regime. No changes have been made to your home medications. Current Hospital Diet Patient's current hospital diet: AHA Diet (Heart Healthy) Discharge Diet Recommended Diet: AHA Diet (Heart Healthy) Pending Studies Studies pending at discharge: no Medical Emergencies . Who to Call and When: Medical Emergencies: If at any time you feel your situation is an emergency, please call 911 immediately. . Non-Emergent Contact Non-Emergency issues call your: Primary Care Provider . . "Provider Documentation" section prepared by Caren Walker. . VTE Core Measure Inpt VTE Proph given/why not?: Unfractionated heparin SQ, SCD's
[2017-03-27 15:50] VITALS: BP 110/73; PULSE 77; TEMP 36.5; O2SAT 96
--- NOTE | 2017-03-27 16:01 | EXERCISE STRESS ECHO ---
*NOTICE TO RECEIVING [employer] This information is strictly Confidential and protected under [place] law. [place] law prohibits you from making any further disclosure of this information unless further disclosure is expressly permitted by the written consent of the person to whom it pertains or is authorized by law. A general authorization for the release of medical or other information is not sufficient for this purpose. Hospital accepts no responsibility if the information is made available to any other person, INCLUDING THE PATIENT. Interpretation Summary * Conclusions -- * Stress Echo: * 1. Negative stress echo for ischemia at 91% MPHR. * 2. No significant exercise ECG changes at 91% MPHR. * 3. Appropriate blood pressure response to exercise. * 4. No arrhythmia. * 5. Study terminated due to knee pain. No chest pain reported. * 6. Fair exercise tolerance. * 7. Technically difficult study, enhanced with IV Definity. * Echo: * 1. Normal left ventricular size and systolic function. EF 60-65%. No regional wall motion abnormalities. No left ventricular hypertrophy. Type 2 diastolic dysfunction. * 2. No significant valvular abnormalities. * 3. Technically difficult study, enhanced with IV Definity. Procedure Details * ECHOEX, CPT #74391 * A contrast injection of Definity was performed to improve assessment of LV function. * Contrast was injected into an intravenous site in the left arm. * One vial of Definity ultrasound contrast was diluted in normal saline to a total volume of 10 ml. A total of '6' ml of solution was administered during imaging. * Lot # [id number] of Definity utilized for procedure. * Expiration date MAY 05. * The attending nurse who injected the contrast agent was JULIA MARIN RN. Left Ventricular Findings with Stress * Name: ALYSHA NIÑO Study Date: 03/27/2017 10:43 AM BP: 147/98 mmHg Patient Location: C.MED\S\N287\S\1 HR: 73 : 1945 (M/d/yyyy) Gender: Male Height: 68 in Age: 71 yrs Ethnicity: CA Weight: 247 lb Ordering Physician: Luna Mckeon Referring Physician: Self, Referred Performed By: Nataliia Feng RDCS Reason For Study: CHEST PAIN BSA: 2.2 m2 Left Ventricle * The left ventricle is normal in size. * There is normal left ventricular wall thickness. * Ejection Fraction = 60-65%. * Left ventricular systolic function is normal. * No regional wall motion abnormalities noted. * The left ventricular ejection fraction increases normally with stress. The left ventricular end-systolic cavity size reduces post-stress (normal response). The left ventricular wall motion with stress is normal. * Resting wall motion: Normal. Stress wall motion: Appropriate increase in Left ventricular systolic function and decrease in cavity size. No stress induced segmental wall motion abnormalities. Right Ventricle * The right ventricle is normal in size and function. * The right ventricular systolic function is normal as assessed by tricuspid annular plane systolic excursion (TAPSE) (normal >1.5 cm). Atria * The left atrium is borderline dilated. * Right atrial size is normal. * There is no evidence of atrial septal defect, but resolution does not allow assessment for a patent foramen ovale. Mitral Valve * The mitral valve leaflets appear normal. There is no evidence of stenosis, fluttering, or prolapse. * There is trace mitral regurgitation. Tricuspid Valve * The tricuspid valve is not well visualized, but is grossly normal. * There is no tricuspid stenosis. * There is trace tricuspid regurgitation. Aortic Valve * The aortic valve is normal in structure and function. * The aortic valve is trileaflet. * No hemodynamically significant valvular aortic stenosis. * No aortic regurgitation is present. Pulmonic Valve * The pulmonary valve is inadequately visualized, but the Doppler data is adequate for interpretation. * There is no significant pulmonary regurgitation. Great Vessels * The aortic root is normal size. * Normal pulmonary venous flow pattern. Pericardium * There is no pericardial effusion. Stress Parameters * NSR at 75 bpm. RBBB. * 0.5 - 1 mm horizontal to downsloping ST depression in one lead (V3). * The stress portion of this study was personally supervised by the undersigned interpreting physician. * Rest heart rate was '74' BPM. * Rest blood pressure was '145/84' * Maximum heart rate achieved was 137 bpm. * Maximum heart rate was 91 % of maximum age-predicted heart rate. * Maximum blood pressure was '191/75 mmHg' * Total exercise time was '5:01' * Maximum exercise MET level achieved was '7.00' METS * Maximum treadmill speed was '2.50' miles per hour. * Maximum treadmill elevation was '12.00'% grade. * Exercise was terminated due to 'knee pain' * Normal blood pressure response to exercise. Left Ventricular Findings with Stress * A contrast injection of Definity was performed to improve assessment of LV function. * Contrast was injected into an intravenous site in the left arm. * One vial of Definity ultrasound contrast was diluted in normal saline to a total volume of 10 ml. A total of '2' ml of solution was administered during imaging. * Lot # [id number] of Definity utilized for procedure. * Expiration date MAY 05. * The attending nurse who injected the contrast agent was JULIA MARIN RN. MMode 2D Measurements and Calculations IVSd 1.1 cm IVSs 1.6 cm LVIDd 3.6 cm LVIDs 2.4 cm LVPWd 1.1 cm LVPWs 1.3 cm IVS/LVPW 1.1 FS 33.3 % EDV(Teich) 55.3 ml ESV(Teich) 20.5 ml EF(Teich) 62.9 % EDV(cubed) 47.6 ml ESV(cubed) 14.1 ml EF(cubed) 70.4 % % IVS thick 41.0 % % LVPW thick 21.3 % LV mass(C)d 124.7 grams LV mass(C)dI 55.8 grams/m\S\2 LV mass(C)s 112.6 grams LV mass(C)sI 50.4 grams/m\S\2 SV(Teich) 34.8 ml SI(Teich) 15.6 ml/m\S\2 SV(cubed) 33.5 ml SI(cubed) 15.0 ml/m\S\2 Ao root diam 3.5 cm Ao root area 9.5 cm\S\2 LA dimension 3.7 cm LA/Ao 1.1 LVAd ap4 33.5 cm\S\2 LVLd ap4 8.6 cm EDV(MOD-sp4) 108.7 ml EDV(sp4-el) 110.9 ml LVAs ap4 18.7 cm\S\2 LVLs ap4 7.1 cm ESV(MOD-sp4) 41.1 ml ESV(sp4-el) 41.8 ml EF(MOD-sp4) 62.2 % EF(sp4-el) 62.3 % LVAd ap2 29.6 cm\S\2 LVLd ap2 7.5 cm EDV(MOD-sp2) 98.7 ml EDV(sp2-el) 98.9 ml LVAs ap2 18.3 cm\S\2 LVLs ap2 6.9 cm ESV(MOD-sp2) 41.3 ml ESV(sp2-el) 41.6 ml EF(MOD-sp2) 58.1 % EF(sp2-el) 58.0 % LVLd %diff -14.26 % EDV(MOD-bp) 111.6 ml LVLs %diff -3.65 % ESV(MOD-bp) 41.4 ml EF(MOD-bp) 62.9 % SV(MOD-sp4) 67.6 ml SI(MOD-sp4) 30.3 ml/m\S\2 SV(MOD-sp2) 57.4 ml SI(MOD-sp2) 25.7 ml/m\S\2 SV(MOD-bp) 70.2 ml SI(MOD-bp) 31.4 ml/m\S\2 SV(sp4-el) 69.1 ml SI(sp4-el) 30.9 ml/m\S\2 SV(sp2-el) 57.4 ml SI(sp2-el) 25.7 ml/m\S\2 Doppler Measurements and Calculations MV E max lolita 92.3 cm/sec MV A max lolita 83.3 cm/sec MV E/A 1.1 MV dec time 0.19 sec Ao V2 max 126.1 cm/sec Ao max PG 6.4 mmHg Ao max PG (full) 0.78 mmHg LV V1 max PG 5.6 mmHg LV V1 max 118.1 cm/sec TR max lolita 262.5 cm/sec
[2017-03-27 16:04] VITALS: BP 110/73; PULSE 77; TEMP 36.5; O2SAT 96
[2017-03-28] MEDS ORDERED: LEVOTHYROXINE 25 MCG TAB PO SCH (06:30)
[2017-03-28] MEDS ORDERED: HYDROCHLOROTHIAZIDE 25 MG TAB PO SCH (09:00)
[2017-03-28] MEDS ORDERED: CEROVITE ADV FORMULA TAB PO SCH (09:00)
[2017-03-28] MEDS ORDERED: ASPIRIN 81 MG ECTAB PO SCH (09:00)
[2017-03-28] MEDS ORDERED: FEXOFENADINE HCL 180 MG TAB PO SCH (09:00)
[2017-03-28] MEDS ORDERED: EZETIMIBE 10MG TAB PO SCH (09:00)
[2017-03-28] MEDS ORDERED: PANTOprazole SOD 40 MG TAB PO SCH (09:00)
== END 2017-03-27 16:37 | disposition home or self-care (01) | DRG 313 ==
LOC: C.EDB 02:30 → C.MED 05:57 → ENRESERV 06:54
PROVIDERS: ADMIT Family Medicine; ATTEND Family Medicine
DX: R07.2 Precordial pain (principal); I49.1 Atrial premature depolarization; I45.10 Unspecified right bundle-branch block; R00.0 Tachycardia, unspecified; I48.0 Paroxysmal atrial fibrillation; I10 Essential (primary) hypertension; E78.5 Hyperlipidemia, unspecified; E78.00 Pure hypercholesterolemia, unspecified; E03.9 Hypothyroidism, unspecified; M17.12 Unilateral primary osteoarthritis, left knee; M19.071 Primary osteoarthritis, right ankle and foot; I25.10 Atherosclerotic heart disease of native coronary artery without angina pectoris; Z82.49 Family history of ischemic heart disease and other diseases of the circulatory system; Z87.891 Personal history of nicotine dependence; Z79.82 Long term (current) use of aspirin; Z79.899 Other long term (current) drug therapy

== ENCOUNTER → 2017-09-01 | Outpatient (CLI) | payer BC, OTHER ==
[~2017-09-01] MED LIST: ASPI1TAB48 PO; CHOL1000 PO; CIPR0.3S OP; EZET10TA63 PO; FEXO1TAB49 PO; HYDR25TA4 PO; LEVO25TA5 PO; LUTE6TAB PO; MULT-1093 PO; PRLSR20 PO; SOTA80TA PO
== END | disposition home or self-care (01) ==
LOC: C.RDSM 10:48
PROVIDERS: ATTEND Physical Medicine & Rehabilitation Sports Medicine
DX: M25.511 Pain in right shoulder (principal)

== ENCOUNTER → 2017-11-02 | Outpatient (CLI) | payer BC ==
--- NOTE | 2017-11-02 17:08 | DIAGNOSTIC IMAGING REPORT ---
RIGHT SHOULDER MRI HISTORY: RIGHT SHOULDER PAIN TECHNIQUE: Multiplanar multisequence MRI of the right shoulder was performed without contrast. COMPARISON STUDY: Right shoulder 09/01/2017. FINDINGS: AC joint: Moderate AC joint arthrosis demonstrated by joint space narrowing, marginal osteophytes, and subchondral cystic change. Rotator cuff: Small linear partial tear seen within the undersurface of the subscapularis tendon. Thickening and increased signal within the infraspinatus tendon consistent with a tendinopathy. Focal full-thickness tear within the distal supraspinatus which measures 5 x 4 mm. Trace fluid within the subacromial/subdeltoid bursa. No associated retraction of the rotator cuff. No significant muscular atrophy. Labrum: Small area of increased signal within the posterior superior labrum suggestive of degeneration. No definite labral tear. Biceps tendon: Intact Bones: No fracture or dislocation. Mild superior subluxation of the humeral head in relation to the glenoid. This is likely due to the rotator cuff injury. Cartilage: Mild cartilage thinning at the glenoid. IMPRESSION: 1. Small focal full-thickness tear within the distal supraspinatus tendon. 2. Small partial tear at the undersurface of the subscapularis tendon. 3. Moderate AC joint arthrosis. Electronically signed by: Miguel A Tong M.D. 11/02/2017 5:06 PM Dictated Date/Time: 11/02/2017 4:58 PM
== END | disposition home or self-care (01) ==
LOC: C.MRIBC 15:38
PROVIDERS: ATTEND Physical Medicine & Rehabilitation Sports Medicine
DX: M25.511 Pain in right shoulder (principal)

== ENCOUNTER → 2017-12-07 | Day surgery (SDC) | payer BC ==
[2017-11-14 11:06] VITALS: Ht 172.7 cm; Wt 104.5 kg
[~2017-12-07] VITALS: Ht 172.7 cm; Wt 104.5 kg
[~2017-12-07] MED LIST changes: +ALLERGY INJECTIONS SC; +ATROPINE SULFATE 0.1 MG/ML 5ML SYR IV PRN; +CEFAZOLIN 2000MG IV PUSH 15 ML IV SCH; -CHOL1000 PO; +CHOL1TAB52 PO; -CIPR0.3S OP; +DEXAMETHASONE SOD INJ 4 MG/ML VIAL ONE; +EpHEDrine SULFATE INJ 50 MG/ML AMP IV PRN; +EpHEDrine SULFATE INJ 50 MG/ML AMP ONE; +EpINEphrine INJ 1MG/ML AMP 1 MG/ML AMP ONE; +FENTANYL CITRATE INJ 50 MCG/1 ML 2 ML VIAL IV PRN; +FENTANYL CITRATE INJ 50 MCG/1 ML 2 ML VIAL ONE; -FEXO1TAB49 PO; +FLUMAZENIL 0.1 MG/1 ML 10 ML VIAL IV PRN; +GLYCOPYRROLATE INJ 0.2 MG/ML VIAL ONE; +HYDR-5688 PO; +HYDROCODONE/ACETAMIN 5/325MG TAB PO PRN; +LABETALOL HCL IV 5 MG/ML 20ML IV PRN; +LACTATED RINGER'S 1000ML 1,000 ML IV SCH; +LIDOCAINE HCL 2% 2 ML VIAL (20MG/ML) ONE; +LIDOCAINE/EPINEPHRINE 1% 20 ML VIAL ONE; +MEPERIDINE HCL 25 MG/ML CARP IV PRN; +MIDAZOLAM HCL 1 MG/ML 2ML VIAL ONE; -MULT-1093 PO; +MoRPHine SULFATE 2 MG/ML CARP IV PRN; +MoRPHine SULFATE 4 MG/ML 1 ML CARP\\VIAL IV PRN; +NALOXONE HCL 0.4 MG/1 ML VIAL/CARP IV PRN; +NEOSTIGMINE METHYLSULFATE 5 MG/5 ML SYR ONE; +NXM/40 PO; +ONDANSETRON INJ 2 MG/ML 2 ML VIAL IV PRN; +ONDANSETRON INJ 2 MG/ML 2 ML VIAL ONE; +PHENYLEPHRINE 100MCG/ML 5ML SYR IV PRN; +PHENYLEPHRINE HCL INJ 10 MG/ML VIAL ONE; -PRLSR20 PO; +PROPOFOL IV EMULSION 10 MG/ML 20 ML VIAL IV ONE; +ROCURONIUM BROMIDE 10 MG/ML 5 ML VIAL IV ONE; +ROPIVACAINE 0.5% 5 MG/ML 30 ML VIAL ONE; +SCOPOLAMINE 1.5 MG TDSY TD ONE; +SODIUM CHLORIDE 0.9% 1000ML 1,000 ML IV SCH; +SODIUM CHLORIDE 0.9% INJ 10 ML VIAL ONE; +SUCCINYLCHOLINE CHLORIDE 20 MG/ML 10 ML VIAL IV ONE
--- NOTE | 2017-12-07 06:50 | History & Physical Bridge Note ---
H&P Re-Evaluation Bridge Note: I have examined the patient, reviewed the History & Physical and in the interval since the performance of the History & Physical I have noted the following changes of clinical significance: No changes noted
--- NOTE | 2017-12-07 10:34 | [facility] Post Operative Brief Note ---
Immediate Operative Summary Operative Date Dec 07, 2017. Pre-Operative Diagnosis Right shoulder rotator cuff tear Post-Operative Diagnosis Same as preop Procedure(s) Performed Right Shoulder Arthroscopy, Rotator Cuff Repair, Subacromial Decompression Surgeon Dr. Conrad Electric Clock Mechanic Surgeon(s) Leda Velez PA-C Estimated Blood Loss 25 mL Findings Consistent with Post-Op Diagnosis Specimens None Anesthesia Type General Regional Complication(s) none Disposition Accompanied Pt To Recovery: no Disposition: Recovery Room / PACU
--- NOTE | 2017-12-07 11:05 | [facility] Operative Report ---
Operative Report Operative Date Dec 07, 2017. Pre-Operative Diagnosis Right shoulder rotator cuff tear Post-Operative Diagnosis Same as preop Procedure(s) Performed Right Shoulder Arthroscopy, Rotator Cuff Repair, Subacromial Decompression Surgeon Dr. Conrad Continuity Coordinator Surgeon(s) Leda Velez PA-C Estimated Blood Loss 25 mL Findings Prominent anterior acromion. 20 mm full-thickness supraspinatus tear Specimens None Anesthesia General with interscalene block Complication(s) None Disposition Recovery Room / PACU Implants Bio composite Arthrex anchors 4.75 swivel lock 2. 5.5 swivel lock 2. Indications Patient is a 72-year-old male with right shoulder pain long-standing and refractory to nonsurgical methods of management. He has a prominent anterior acromial spur. Rotator cuff MRI shows a tear of the supraspinatus. Treatment options risks and benefits discussed he is undergone some conservative treatment without success and wishes to proceed with surgery. Description of Procedure Informed consent was obtained. The patient was identified as Nilesh Pritchard. The patient identified the operative site as the right shoulder which I marked with my initials. A preoperative surgical timeout was performed. A preop dose of IV antibiotics was given. The patient was positioned beachchair with the neck in neutral alignment. The torso secured to the table pill was placed underneath the knees heels were padded kidney rests were utilized along with the Schlein positioner and tremano arm yates.. The limb was prepped and draped in the usual sterile fashion. The examination under anesthesia showed full and equal range of motion. DVT prophylaxis was done with impulse foot pumps and early mobility. The shoulder was injected with 1% lidocaine with epinephrine into the subacromial space and portal sites preoperatively. Posterior soft spot viewing portal was established followed by an anterior mid glenoid working portal. The biceps tendon was normal as was its sheath and gordon. There was a full-thickness tear of the rotator cuff without significant retraction. The posterior cuff was normal as was the axillary pouch. There was minor fraying of the anterior glenoid labrum which was debrided. There may have been some mild chondrosis of the superior portion of the humeral head but otherwise normal articular surfaces. The labrum is otherwise intact circumferentially. The fraying of the rotator cuff was debrided. There was partial undersurface tearing of the subscapularis tendon which was debrided. This appeared to be less than 50% of the thickness and did not compromise the attachment. Scope was placed anterior to visualize the posterior structures. Scope was then placed in subacromial space significant bursitis and abrasion on the undersurface of the acromion was noted. A subacromial bursectomy was performed. The rotator cuff tear was identified. This was a minimally retracted 18-20 mm correct shallow crescent tear with some thinning of the tendon tissue and delamination posteriorly. Debridement was performed followed by excoriation of the greater tuberosity with a rasp and bur. A small bone prominence laterally was debrided. 2 4.57 mm oval lock anchors preloaded with fiber tapes were inserted percutaneously. These were placed just lateral to the articular cartilage margin and just anterior and posterior to the margins of the rotator cuff tear. The scorpion was then utilized to pass these up through the rotator cuff taking care to not over tension. Care was also taken to reduce the cuff and advance it. The posterior delamination was incorporated through the use of a tacking stitch. The rotator cuff was actually shifted a little bit more from back to front which resulted in the proper repair. After passing the stitches they were and suture management was performed. I then asked abducted the arm slightly and externally rotated. Through the lateral cannula I went ahead and inserted to 5.5 mm bio composite swivel lock lateral row anchors. One one fiber tape limb from each of the anchors was then passed to either the anterior or posterior lateral row anchor. The sutures were tightened and the anchors were inserted with excellent fixation. This was done for the posterior and then the anterior anchor. The posterior anchor was done first in order to properly reduce the delamination and bring the rotator cuff more forward. Care was taken to protect the biceps. The sutures were cut. There were no dog ears and the tacking stitches were removed. This resulted in a secure and anatomic properly tensioned repair. There is a large prominent anterior spur. The undersurface of the acromion was denuded of soft tissue and then using a modified cutting block technique about 4 -5 mm of anterior acromial bur bone was excised using the bur. This was removed until the anterior deltoid fibers were noted. I removed some of the lateral overhang anterior as well. The shaver was run through the shoulder to picking tech loose debris. The orthoscopic portals were closed with 4-0 nylon. A soft sterile dressing was applied with an ABD in the armpit and an UltraSling. The patient was then awakened from anesthesia without difficulty and taken to the recovery room in stable condition. There were no specimens or complications. Counts were correct in the case. Blood loss was approximately 25 cc. At the conclusion of the operation I spoke to patient's informed her my findings. Detailed postoperative instructions were given. He will be rehabilitated according to the small to medium rotator cuff tear rehabilitation protocol. He will have passive movement for 6 weeks. I attest to the content of the Intraoperative Record and any orders documented therein. Any exceptions are noted below.
--- NOTE | 2017-12-07 11:06 | Discharge Instructions-SurgCtr ---
Discharge Instructions Date of Service Dec 07, 2017. Visit Reason for Visit: Right Shoulder Rotator Cuff Tear Discharge Discharge Diagnosis / Problem: Right shoulder rotator cuff tear Discharge Goals Goal(s): Decrease discomfort, Improve function, Increase independence Activity Recommendations Activity Limitations: per Instructions/Follow-up section Anesthesia . Post Anesthesia Instructions: If you have had General Anesthesia or IV Sedation: * Do not drive today. * Resume driving when surgeon permits. * Do not make important decisions or sign legal documents today. * Call surgeon for: 1. Temperature elevations greater than 101 degrees F. 2. Uncontrollable pain. 3. Excessive bleeding. 4. Persistent nausea and vomiting. 5. Medication intolerance (nausea, vomiting or rash). * For nausea and vomiting use only clear liquids such as: tea, soda, bouillon until nausea subsides, then gradually increase diet as tolerated. * If you have any concerns or questions, call your surgeon's office. If physician is unavailable and it is an emergency, call 911 or go to the nearest emergency room. . Instructions / Follow-Up Instructions / Follow-Up The following are instructions to follow after "Shoulder Surgery" including, Acromioplasty, Rotator Cuff Repair and Instability Surgery ACTIVITY RECOMMENDATIONS: * Minimize activity after surgery. * No excessive walking, jogging, sports or laboring. * Return to activity is individualized depending on the patient and type of surgery. * Driving is not permitted until at least your first post operative visit. Please ask your doctor when it is safe to resume driving. * Expect increased discomfort with increased activity. Continue to ice the shoulder as needed. SCHOOL/WORK RECOMMENDATIONS: * You may return to sedentary work or school when you are feeling more comfortable. This is usually 3-7 days after surgery. MEDICATIONS: * You will have a prescription for pain medication and an anti-inflammatory medication after surgery. * Use the pain medication for severe pain and the anti-inflammatory for less severe pain. Once the pain medication has run out, try to use the anti-inflammatory medication. If this is not effective, contact the office for assistance. * The pain medication may cause nausea, constipation and drowsiness. You should see how they affect you before driving or similar activity. * The anti-inflammatory medication may cause stomach upset and bleeding. If this occurs let your doctor know immediately . * Take a stool softener like Colace or a laxative like Senokot to prevent constipation. DIET: * Resume previous diet. SPECIAL CARE: ICE: You have the option of an ice cooler, gel packs or ice bags. * If you have an ice cooler, refer to the instructions for that device. The ice cooler may be used continuously. * If you do not have an ice cooler, you will need to use ice bags or gel packs. Do not apply ice directly to the skin. Use a thin dressing or romulo shirt between the skin and ice bag. Apply ice for 20-30 minutes and repeat every 2-4 hours. This is especially important for the first 7-10 days after surgery. Once the pain improves, use ice as needed. ELEVATION: * You may be more comfortable sleeping in an upright position. Use the sling to elevate your arm. DRESSING: * Your dressing will be changed at your first therapy appointment approximately 4-5 days after surgery. Band-aids, tape strips or gauze may be applied. You may then change your dressing daily. * Reapply dressing followed by the EBIce cooling pad (if chosen) and then the sling. * Always wash your hands prior to touching the incision area. * Once the stitches are removed, you may leave the wound open to air or cover with gauze. * Expect some bloody drainage for the first few days after surgery. * Leave the tape strips, if present, in place for 5-7 days. * Band-aids and gauze may be changed daily. * There may be a gauze pad in your armpit area. This can be changed daily or replaced by a dry washcloth. SLING/BRACE: * You will need to use a sling or brace after surgery. The length of time the sling is used is dependent upon the type of surgery performed. * Arthroscopic Acromioplasty requires use of the sling for 2-4 weeks for comfort. * Labral procedures and Rotator Cuff Repairs require use of the sling for a longer period of time. Please check with your doctor prior to discontinuing the sling. BATHING: * You may shower or sponge-bathe immediately after surgery. The post operative shoulder dressing is mostly water-tight. You may shower right over this dressing, but be reasonably careful not to get the gauze or incision wet. * Once the dressing has been changed on the fourth or fifth day after surgery, you may shower and get the incision wet. * Wash with regular soap and water. * Do not bathe (submerge the incision), soak, swim or use a hot tub until the incision is completely healed over with normal skin and the doctor has given the OK to proceed. * There is no need to apply any ointments, powders or salves to your incision. * Do not apply alcohol or hydrogen peroxide directly to the incision. * Diluted peroxide (50:50 mixture with sterile saline) may be used to clean dried blood from around the incision area. THERAPY: * You will begin therapy four or five days after surgery. * Organized therapy with the therapist is important for the first 2-4 months after surgery depending on the type of procedure. During that time you will attend therapy 1-3 times per week. * You will also need to do daily exercises for range of motion and strength as instructed. * Patients who have a Capsular Shift Procedure will need to abide by temporary range of motion limitations. * Patients having Rotator Cuff Surgery are not allowed to actively lift their arms until 4-6 weeks after surgery. * Please check with your doctor regarding appropriate motion restrictions. FOLLOW UP VISIT: * If not already scheduled, please call the office at to schedule a follow-up appointment for 10 days after surgery and monthly thereafter. * You have a physical therapy appointment on December 12, 2017 at 8:30 AM * You have a follow-up scheduled with Dr. Conrad on December 22, 2017 at 9 AM. Diet Recommendations Home Diet: no limitations, resume previous diet Procedures Procedures Performed: Right Shoulder Arthroscopy, Rotator Cuff Repair, Subacromial Decompression Pending Studies Studies pending at discharge: no Medical Emergencies . Who to Call and When: Medical Emergencies: If at any time you feel your situation is an emergency, please call 911 immediately. . Non-Emergent Contact Non-Emergency issues call your: Surgeon Call Non-Emergent contact if: temperature is above 101, your pain is not controlled, wound has increased drainage, wound has increased redness, wound has increased pain, you have any medication questions . . "Provider Documentation" section prepared by Leda Velez. . [place] Drug Monitoring Program Search Results: patient reviewed within database, no issues identified
--- NOTE | 2017-12-07 11:10 | [facility] Operative Report ---
Operative Report Operative Date Dec 07, 2017. Pre-Operative Diagnosis Right shoulder rotator cuff tear Post-Operative Diagnosis Same as preop Procedure(s) Performed Right Shoulder Arthroscopy, Rotator Cuff Repair, Subacromial Decompression Surgeon Dr. Conrad [employer] Surgeon(s) Leda Velez PA-C Estimated Blood Loss 25 mL Specimens None Drains None Anesthesia Type General Regional Complication(s) none Disposition no Recovery Room / PACU Indications Patient is a 72-year-old male with complaints of right shoulder pain. X-rays were taken and show some mild AC joint arthritis otherwise no acute bony abnormality. MRI obtained and he was found to have a full-thickness supraspinatus tendon tear and partial-thickness subscapularis tear. Surgical intervention was recommended due to his failure of conservative treatment. He agreed to proceed. Risks and complications of surgery were explained to the patient and informed consent was obtained. Description of Procedure Patient was taken to the operating room and placed under general anesthesia. He was given 2 g of IV Ancef for surgical prophylaxis. Timeout was performed. He was prepped and draped in routine sterile fashion. I was present during the entire case, please see Dr. Conrad's operative report for further detail. Patient was awakened and transferred to the recovery room in stable condition. I attest to the content of the Intraoperative Record and any orders documented therein. Any exceptions are noted below.
--- NOTE | 2017-12-07 11:49 | Anesthesia Progress Nt - [facility] ---
Anesthesia Post Op Note Date & Time Dec 07, 2017 at 11:48 Vital Signs Pain Intensity: 0 Vital Signs Past 12 Hours Date Time Temp Pulse Resp B/P (MAP) Pulse Ox O2 Delivery O2 Flow Rate FiO2 12/07/17 10:58 36.2 80 16 154/87 95 Mask 10 12/07/17 07:52 73 12/07/17 07:52 74 20 98 12/07/17 07:51 146/95 12/07/17 07:47 64 12/07/17 07:47 64 24 99 12/07/17 07:46 146/107 12/07/17 07:42 60 23 99 12/07/17 07:42 60 12/07/17 07:41 134/92 12/07/17 07:37 67 23 98 12/07/17 07:37 67 12/07/17 07:36 137/92 12/07/17 07:32 73 35 148/97 (114) 98 Mask 6 12/07/17 07:32 79 29 99 12/07/17 07:32 78 12/07/17 07:31 148/97 12/07/17 07:27 71 20 99 12/07/17 07:27 71 12/07/17 07:26 150/94 12/07/17 07:24 146/97 12/07/17 07:22 75 173/109 12/07/17 07:18 164/105 12/07/17 07:17 72 12/07/17 07:17 72 97 12/07/17 07:12 74 12/07/17 06:48 36.7 72 18 143/90 (107) 96 Room Air Notes Mental Status: alert / awake / arousable, participated in evaluation Pt Amnestic to Procedure: Yes Nausea / Vomiting: adequately controlled Pain: adequately controlled Airway Patency, RR, SpO2: stable & adequate BP & HR: stable & adequate Hydration State: stable & adequate Anesthetic Complications: no major complications apparent
[2017-12-07 12:30] VITALS: TEMP 36.5
[2017-12-07 13:12] VITALS: BP 120/70; PULSE 76; O2SAT 93
== END ==
LOC: X.SURG 06:12
PROVIDERS: ATTEND Physical Medicine & Rehabilitation Sports Medicine
DX: M75.101 Unspecified rotator cuff tear or rupture of right shoulder, not specified as traumatic (principal); I10 Essential (primary) hypertension; E78.00 Pure hypercholesterolemia, unspecified; F32.9 Major depressive disorder, single episode, unspecified; K21.9 Gastro-esophageal reflux disease without esophagitis; E66.9 Obesity, unspecified; I48.91 Unspecified atrial fibrillation; M19.90 Unspecified osteoarthritis, unspecified site; Z87.442 Personal history of urinary calculi; Z85.820 Personal history of malignant melanoma of skin; Z79.82 Long term (current) use of aspirin; Z88.1 Allergy status to other antibiotic agents; Z88.5 Allergy status to narcotic agent; Z90.49 Acquired absence of other specified parts of digestive tract

== ENCOUNTER → 2017-12-22 | Outpatient (CLI) | payer BC ==
[~2017-12-22] MED LIST changes: -ATROPINE SULFATE 0.1 MG/ML 5ML SYR IV PRN; -CEFAZOLIN 2000MG IV PUSH 15 ML IV SCH; -DEXAMETHASONE SOD INJ 4 MG/ML VIAL ONE; -EpHEDrine SULFATE INJ 50 MG/ML AMP IV PRN; -EpHEDrine SULFATE INJ 50 MG/ML AMP ONE; -EpINEphrine INJ 1MG/ML AMP 1 MG/ML AMP ONE; -FENTANYL CITRATE INJ 50 MCG/1 ML 2 ML VIAL IV PRN; -FENTANYL CITRATE INJ 50 MCG/1 ML 2 ML VIAL ONE; -FLUMAZENIL 0.1 MG/1 ML 10 ML VIAL IV PRN; -GLYCOPYRROLATE INJ 0.2 MG/ML VIAL ONE; -HYDROCODONE/ACETAMIN 5/325MG TAB PO PRN; -LABETALOL HCL IV 5 MG/ML 20ML IV PRN; -LACTATED RINGER'S 1000ML 1,000 ML IV SCH; -LIDOCAINE HCL 2% 2 ML VIAL (20MG/ML) ONE; -LIDOCAINE/EPINEPHRINE 1% 20 ML VIAL ONE; -MEPERIDINE HCL 25 MG/ML CARP IV PRN; -MIDAZOLAM HCL 1 MG/ML 2ML VIAL ONE; -MoRPHine SULFATE 2 MG/ML CARP IV PRN; -MoRPHine SULFATE 4 MG/ML 1 ML CARP\\VIAL IV PRN; -NALOXONE HCL 0.4 MG/1 ML VIAL/CARP IV PRN; -NEOSTIGMINE METHYLSULFATE 5 MG/5 ML SYR ONE; -ONDANSETRON INJ 2 MG/ML 2 ML VIAL IV PRN; -ONDANSETRON INJ 2 MG/ML 2 ML VIAL ONE; -PHENYLEPHRINE 100MCG/ML 5ML SYR IV PRN; -PHENYLEPHRINE HCL INJ 10 MG/ML VIAL ONE; -PROPOFOL IV EMULSION 10 MG/ML 20 ML VIAL IV ONE; -ROCURONIUM BROMIDE 10 MG/ML 5 ML VIAL IV ONE; -ROPIVACAINE 0.5% 5 MG/ML 30 ML VIAL ONE; -SCOPOLAMINE 1.5 MG TDSY TD ONE; -SODIUM CHLORIDE 0.9% 1000ML 1,000 ML IV SCH; -SODIUM CHLORIDE 0.9% INJ 10 ML VIAL ONE; -SUCCINYLCHOLINE CHLORIDE 20 MG/ML 10 ML VIAL IV ONE
== END | disposition home or self-care (01) ==
LOC: C.RDSM 18:06
PROVIDERS: ATTEND Physical Medicine & Rehabilitation Sports Medicine
DX: M75.101 Unspecified rotator cuff tear or rupture of right shoulder, not specified as traumatic (principal)